=== PATIENT | female | born 1945 | race Caucasian/White ===

== ENCOUNTER → 2017-03-21 | Outpatient (CLI) | payer MEDICARE, BC | END | disposition home or self-care (01) | LOC: PCVCCLINIC 11:04 | PROVIDERS: ATTEND Internal Medicine | DX: C50.911 Malignant neoplasm of unspecified site of right female breast (principal); R93.1 Abnormal findings on diagnostic imaging of heart and coronary circulation; I10 Essential (primary) hypertension; E78.2 Mixed hyperlipidemia; Z79.899 Other long term (current) drug therapy | CPT/HCPCS: G0463 ==

== ENCOUNTER → 2017-04-08 | Outpatient (CLI) | payer MEDICARE, BC ==
--- NOTE | 2017-04-08 16:29 | PCVCIMAG ---
APPROVED REPORT Study performed: 04/08/2017 15:14:21 EXAM: Comprehensive 2D, Doppler, and color-flow Echocardiogram Patient Location: Echo lab Status: routine BSA: 1.57 HR: 75 bpmBP: 110/70 mmHg Rhythm: NSR Other Information Study Quality: Adequate Risk Factors: Cardiac Risk Factors: Hyperlipidemia, HTN, FHX of CAD Indications Hypertension/HDD Elevated Calcium Score 2D Dimensions LVEF(%): 62.32 (>50%) IVSd: 7.39 (7-11mm)LVOT Diam: 17.64 (18-24mm) LVDd: 40.70 mm PWd: 6.34 (7-11mm)Ascending Ao: 32.75 (22-36mm) LVDs: 27.19 (25-40mm) Left Atrium: 38.04 (27-40mm) Aortic Root: 25.67 mm Sherman's LVEF: 62.32 % Volumes Left Atrial Volume (Systole) Single Plane 4CH: 15.80 mLSingle Plane 2CH: 21.87 mL LA ESV Index: 13.00 mL/m2 Aortic Valve AoV Peak Jayme.: 1.15 m/s AO Peak Gr.: 5.25 mmHgLVOT Max P.47 mmHg LVOT Max V: 0.93 m/s BRYCE Vmax: 1.98 cm2 Mitral Valve E/A Ratio: 0.7 MV Decel. Time: 232.45 ms MV E Max Jayme.: 0.49 m/s MV A Jayme.: 0.66 m/s IVRT: 100.35 ms Pulmonary Valve PV Peak Gr.: 2.46 mmHg Tricuspid Valve TR Peak Jayme.: 2.20 m/s TR Peak Gr.: 19.44 mmHg Left Ventricle The left ventricle is normal size. There is normal LV segmental wall motion. There is normal left ventricular wall thickness. Left ventricular systolic function is normal. The left ventricular ejection fraction is within the normal range. LVEF is 55-60%. Grade I - abnormal relaxation pattern. Right Ventricle The right ventricle is normal size. The right ventricular systolic function is normal. Atria The left atrium size is normal. The right atrium size is normal. Aortic Valve The aortic valve is trileaflet, mildly calcified. No aortic regurgitation is present. There is no aortic valvular stenosis. Mitral Valve The mitral valve is normal in structure. There is no mitral valve regurgitation noted. No evidence of mitral valve stenosis. Tricuspid Valve The tricuspid valve is normal in structure. Trace tricuspid regurgitation. Pulmonic Valve The pulmonary valve is normal in structure. Trace pulmonic regurgitation. Great Vessels The aortic root is normal in size. IVC is normal in size and collapses with >50% inspiration Pericardium There is no pericardial effusion. <Conclusion> Left ventricular systolic function is normal. There is normal LV segmental wall motion. LVEF is 55-60%. Grade I diastolic dysfunction The aortic valve is trileaflet, mildly calcified. No aortic regurgitation or stenosis The mitral valve is normal in structure. No mitral valve regurgitation noted. Pulmonary artery pressure could not be reliably ascertained There is no pericardial effusion.
--- NOTE | 2017-04-08 16:42 | PCVCIMAG ---
APPROVED REPORT Patient Location: Echo lab Room #: Stress Nurse: Mercedes Castillo RN Hyperlipidemia. Family History CAD. Abnormal Calcium Score Treadmill Stress Test. The patient exercised according to the Kwaku protocol for 9:24_mins; achieving a work level of 11.20 METS. The resting heart rate of 75 bpm kareem to a maximal heart rate of 157 bpm. This value represents 106% of the maximal, age-predicted heart rate. The resting blood pressure of 110/70 mmHg, kareem to a maximum of 154/70mmHg. The exercise test was stopped due to fatigue. ECG: Sinus normal tracing Stress ECG: No ST segment shifts diagnostic of ischemia. No dysrhythmias Conclusion 1. Maximal treadmill exercise study negative for ischemia 2. No subjective signs of ischemia such as chest pain or anginal-type symptoms 3. This study was associated with good exercise capacity (11.2 METS)
== END | disposition home or self-care (01) ==
LOC: PCVCIMAG 14:58
PROVIDERS: ATTEND Internal Medicine
DX: I07.1 Rheumatic tricuspid insufficiency (principal); I37.1 Nonrheumatic pulmonary valve insufficiency; E78.2 Mixed hyperlipidemia; I10 Essential (primary) hypertension; C50.911 Malignant neoplasm of unspecified site of right female breast; Z82.49 Family history of ischemic heart disease and other diseases of the circulatory system
CPT/HCPCS: 93017; 93306